=== PATIENT | female | born 1945 | race Caucasian/White ===

== ENCOUNTER → 2016-11-15 | Outpatient (CLI) | payer OTHER ==
--- NOTE | ~2016-11-15 | US78 ---
[facility] A Service of [facility] RADIOLOGY TEXT RESULTS PATIENT: DARCY RAMOS LOCATION: [facility] : 44 UNIT #: [id number] AGE: [address]: Victorina Tucker MD SEX: F ORDER DR: [id number] [facility] [address] [place], [place] [address] [id number] O MR#: [id number] Acc #: [id number] NAME: DARCY RAMOS. : 1945 SEX: F STUDY DATE/TIME: 11/15/2016 10:45 UNIT: [facility] ROOM: STUDY DESCRIPTION: US Kidney Duplex Complete Attending Physician: Colin Tucker M.D. Referring Physician: Colin Tucker M.D. Ordering Physician: Colin Tucker M.D. Primary Care Physician: Elvia Major M.D. MEDICAL IMAGING REPORT This report is preliminary unless electronic signature is present EXAM Complete duplex Doppler renal ultrasound COMPARISON Renal ultrasound dated 08/28/[address] abdomen and pelvis dated 07/15/2006. INDICATION 71-year-old female with chronic kidney disease stage 3. FINDINGS Peak systolic velocity in the abdominal aorta is 92 cm/sec. The right kidney is atrophic with marked cortical thinning. Right renal length is 8 cm with a cortical thickness of approximately 6 mm in some places. There are normal resistive indices in the right kidney. Right renal vein is patent. Peak systolic velocities in the proximal, mid and distal right renal arteries are 160 cm/sec, 114 cm/sec, and 98 cm/sec. Left kidney appears normal in size measuring up to 10.2 cm with normal cortical thickness. There is no hydronephrosis in either kidney. There are normal resistive indices within the arcuate arteries of the left kidney and the left renal vein is patent. Peak systolic velocities in the proximal, mid and distal left renal arteries are 130 cm/sec, 212 cm/sec, and 143 cm/sec. Bilateral renal artery velocity to aortic velocity ratios are normal. IMPRESSION 1. Marked atrophy of the right kidney. No evidence of right renal artery stenosis. 2. Normal size of the left kidney with normal cortical thickness. There is a peak systolic velocity of 212 cm/sec in the mid left renal artery which may indicate approximately 60% stenosis. However, the [facility] A Service of [facility] RADIOLOGY TEXT RESULTS PATIENT: DARCY RAMOS LOCATION: [facility] : 44 UNIT #: [id number] AGE: [address]: Victorina Tucker MD SEX: F ORDER DR: left renal artery to aortic velocity ratio is within normal limits. Clinical correlation is recommended. Dictated by... Sam Holt M.D. THIS IS AN ELECTRONICALLY VERIFIED REPORT Sam Holt M.D. at 11/18/2016 3:39 PM EMERSON/lindy TD: 11/18/2016 15:22 JOB #: [id number] MEDICAL IMAGING REPORT Page 1 of 1 COPY
== END | disposition home or self-care (01) ==
LOC: CNIV 10:16
DX: I12.9 Hypertensive chronic kidney disease with stage 1 through stage 4 chronic kidney disease, or unspecified chronic kidney disease (principal); N18.3 Chronic kidney disease, stage 3 (moderate)
CPT/HCPCS: 93975

== ENCOUNTER → 2016-11-15 | Outpatient (CLI) | payer OTHER ==
--- NOTE | ~2016-11-15 | MY11 ---
[facility] A Service of [facility] RADIOLOGY TEXT RESULTS PATIENT: DARCY RAMOS LOCATION: [facility] : 44 UNIT #: [id number] AGE: [address]: CELINE POWERS MD SEX: F ORDER DR: [id number] [address] [place], [place] [address] [id number] O MR#: [id number] Acc #: [id number] NAME: DARCY RAMOS : 1945 SEX: F STUDY DATE/TIME: 11/15/2016 12:42 UNIT: [facility] ROOM: STUDY DESCRIPTION: MY Mammogram Screening Dig Kyree Attending Physician: Celine Powers M.D. Referring Physician: Celine Powers M.D. Ordering Physician: Celine Powers M.D. Primary Care Physician: Celine Powers M.D. MEDICAL IMAGING REPORT This report is preliminary unless electronic signature is present EXAM Bilateral digital screening mammogram with CAD 11/15/2016 INDICATIONS 71-year-old female for routine screening. No reported problems and no personal or family history of breast cancer and surgery. TECHNIQUE CC and MLO views of breast were obtained and reviewed with a FDA-approved CAD device. COMPARISON STUDIES 04/22/2014, 05/27/2012, 01/04/2010. FINDINGS Breast parenchyma is composed of scattered fibroglandular densities pattern is unchanged. Subareolar predominance in both breasts persist. There is no new dominant nodule mass or suspicious clustered microcalcifications. Benign calcifications are present. IMPRESSION 1. Benign screening mammogram, 1 year followup recommended. BIRADS: 2 Benign Finding. Patients over the age of 40 are entered into a reminder system with target due date for the next mammogram. A result letter will also be sent to the patient. [facility] A Service [facility] RADIOLOGY TEXT RESULTS PATIENT: DARCY RAMOS LOCATION: [facility] : 43 UNIT #: [id number] AGE: [address]: CELINE POWERS MD SEX: F ORDER DR: Dictated by... Nabil Roberts M.D. THIS IS AN ELECTRONICALLY VERIFIED REPORT Nabil Roberts M.D. at 11/18/2016 7:31 AM EL/rosy TD: 11/15/2016 20:22 JOB #: [id number] MEDICAL IMAGING REPORT Page 1 of 1 COPY
--- NOTE | ~2016-11-15 | OR ---
Unit #: [id number] #: [id number] Patient: DARCY RAMOS [id number] [address] [address] [id number] O MR#: [id number] NAME: DARCY RAMOS ROOM: Date of Procedure: 01/17/2017 Admission Date: 11/15/2016 Surgeon: Lawrence Patel M.D. : 1945 Attending Physician: Elvia Major M.D. Referring Physician: Elvia Major M.D. Primary Care Physician: Elvia Major M.D. OPERATIVE REPORT PREOPERATIVE DIAGNOSES Bilateral ureteral obstruction and bladder pain. POSTOPERATIVE DIAGNOSES Interstitial cystitis and bilateral ureteral obstruction. PROCEDURES PERFORMED Cystoscopy, bilateral stent exchange, hydrodistention, and biopsy. DESCRIPTION OF PROCEDURE After informed consent, she was taken to the operating room, placed under general anesthetic, and positioned in lithotomy. Her vagina and perineum were prepped and draped in the usual sterile fashion. Cystoscopy was performed showing left and right stents in good position. The stents were removed. The bladder was distended on three different occasions. She had a very small capacity bladder. I was able to obtain maximum 200 mL with distention. She had erythematous changes in the bladder. There were no papillary changes. I did take two biopsies on the posterior bladder wall. Bugbee was used for hemostasis. I placed two new stents. She previously had a 7 and 6-Bangladeshi stent. I downsized her to 5-Bangladeshi stents, they were 22 in length, so they were 5 x 22 on the left and right. There was a good coil in the bladder and collecting system. I definitely believe she has interstitial cystitis. We will wait for the final pathology report to rule out malignancy. She has significant bladder pain, which is augmented by her stent irritation. Lidocaine jelly was placed in the urethra and bladder. She will be discharged home and return to see me as an outpatient. Dictated by... Ely Pineda/lynnl TD: 01/18/2017 14:13 JOB #: [id number] Unit #: [id number] #: [id number] Patient: DARCY RAMOS OPERATIVE REPORT Page 1 of 1 X Lawrence Patel MD PROCEDURE OPERATIVE NOTE
== END | disposition home or self-care (01) ==
LOC: CWCC 10:28
DX: Z12.31 Encounter for screening mammogram for malignant neoplasm of breast (principal)
CPT/HCPCS: G0202

== ENCOUNTER → 2017-02-12 | Outpatient (CLI) | payer OTHER ==
--- NOTE | ~2017-02-12 | US84 ---
[id number] [facility] [address] [place], [place] [address] [id number] O MR#: [id number] Acc #: [id number] NAME: DARCY RAMOS : 1945 SEX: F STUDY DATE/TIME: 02/12/2017 14:54 UNIT: [facility] ROOM: STUDY DESCRIPTION: US LE Veins Complete Kyree Stdy Attending Physician: Colin Tucker M.D. Referring Physician: Colin Tucker M.D. Ordering Physician: Colin Tucker M.D. Primary Care Physician: Elvia Major M.D. MEDICAL IMAGING REPORT This report is preliminary unless electronic signature is present EXAM Bilateral lower extremity venous duplex 02/12/2017 HISTORY Bilateral lower extremity edema for 1 week, left greater than right after a recent long car drive. Evaluate for deep vein thrombosis. TECHNIQUE Venous ultrasound examination of both lower extremities was performed using grayscale, spectral Doppler and color flow Doppler imaging. FINDINGS The examination is negative. There is no evidence of deep venous thrombus from the groin to the lower calf bilaterally. Visualized greater saphenous veins are also patent. IMPRESSION Negative examination. No evidence of lower extremity deep venous thrombosis. Dictated by... Elio Horton M.D. THIS IS AN ELECTRONICALLY VERIFIED REPORT Elio Horton M.D. at 02/13/2017 2:06 PM KRT/to TD: 02/12/2017 17:21 JOB #: [id number] MEDICAL IMAGING REPORT Page 1 of 1 COPY
== END | disposition home or self-care (01) ==
LOC: CNIV 14:34
DX: M79.89 Other specified soft tissue disorders (principal)
CPT/HCPCS: 93970